=== PATIENT | male | born 1940 | race Caucasian/White ===

== ENCOUNTER → 2020-05-15 | Outpatient (CLI) | payer MEDICARE, OTHER ==
[~2020-05-15] MED LIST: ECOTRIN81 MG PO; ELIQUIS5 MG PO; HYDRALAZINE HCL25 MG PO; IMDUR ER TAB 3030 MG PO; LASIX40 MG PO; LIPITOR TAB 1010 MG PO; LISINOPRIL10 MG PO; LOPRESSOR 25 MG25 MG PO; MICROZIDE12.5 MG PO; NITROGLYCERIN6.5 MG PO; NORVASC10 MG PO; POTASSIUM CHLO20 ME2 PO
== END ==
LOC: ECHO 12:42
DX: R06.02 Shortness of breath (principal)
CPT/HCPCS: ECHO; 93306